=== PATIENT | male | born 1995 | race Caucasian/White ===

== ENCOUNTER → 2016-12-28 | Outpatient (CLI) | payer BC | LOC: GMA 15:17 | PROVIDERS: ATTEND Family Medicine | DX: E34.9 Endocrine disorder, unspecified (principal); N52.9 Male erectile dysfunction, unspecified ==

== ENCOUNTER → 2020-03-18 | Outpatient (CLI) | payer BC ==
--- NOTE | 2020-03-18 16:34 | US ---
EXAM DESCRIPTION: Gall Bladder: ULTRASOUND. CLINICAL HISTORY: NAUSEA COMPARISON: Barium upper GI following this examination. TECHNIQUE: Transabdominal scanning: Medrano-scale and Doppler modes. FINDINGS: Gallbladder: normal size, shape, echogenicity; no intraluminal stones or sludge. No fluid around the gallbladder. No wall thickening. 2.7 mm. Non-tender with transducer pressure. Common bile duct: caliber 4.2 mm within normal limits. Liver: normal echogenicity; contour liver capsule smooth where seen. No fluid around the liver. Intrahepatic biliary ducts normal caliber. Doppler hepatopedal flow portal vein.. 8.2 mm caliber at the radha hepatis. Long axis right lobe 14.2 cm. Pancreas: normal size Normal echogenicity. Duct not seen. Aorta: Proximal caliber 1.6 cm. Right kidney: long axis is 10.3 x 5.7 x 4.4 cm. Normal cortical thickness and echogenicity. No echogenic stones or hydronephrosis.. IMPRESSION: 1. Gallbladder is unremarkable. Normal caliber of the common bile duct. 2. No findings in the liver. Pancreas is negative. No ascites 3. Right kidney normal ultrasound. Normal caliber of the proximal abdominal aorta and IVC. Electronically signed by: Doug Lynne MD 03/18/2020 4:33 PM CDT
--- NOTE | 2020-03-18 16:50 | RAD ---
EXAM DESCRIPTION: UGI: Rad-Fluoroscopy. CLINICAL HISTORY: NAUSEA COMPARISON: Gallbladder ultrasound on the same visit. TECHNIQUE: Fluoroscopy performed by Dr. Lynne The patient swallowed barium pill with water. The patient swallowed gas-producing granules, water, and heavy density barium under fluoroscopic visualization. The images were obtained with the patient standing and horizontal.. Patient drank medium density barium through a straw in the semi-prone position. 40 fluoroscopic cine loop images. 14 single fluoroscopic images. Total fluoroscopy time was 3.4 minutes.. DAP: 15.5 Gy-cm2.. FINDINGS: Patient swallowed the barium pill with no delay in passage from the oral cavity to the stomach. Swallowing mechanism was grossly normal. No mucosal lesions in the distal esophagus. No mass effect. Gastroesophageal junction unremarkable. No hiatal hernia or gastroesophageal reflux. Because of the stomach is unremarkable. No mass effect. Normal function of the gastroduodenal junction. Duodenum contains contrast material. No mucosal lesions or mass effect. Delayed transit of contrast through the jejunum IMPRESSION: 1. Delayed transit of contrast material through the duodenum into jejunum. No mucosal lesions or mass effect or duodenal distention. 2. Stomach is unremarkable. No reflux or hiatal hernia. Normal appearance of the mucosa of the distal esophagus. Electronically signed by: Doug Lynne MD 03/18/2020 4:49 PM CDT
== END ==
LOC: RAD 08:05
PROVIDERS: ATTEND Family Medicine
DX: R11.0 Nausea (principal)

== ENCOUNTER → 2020-03-18 | Outpatient (CLI) | payer BC | LOC: GMAM 11:13 | PROVIDERS: ATTEND Family Medicine | DX: R11.0 Nausea (principal) ==

== ENCOUNTER → 2020-03-22 | Outpatient (CLI) | payer BC ==
--- NOTE | 2020-03-22 14:12 | CT ---
EXAM DESCRIPTION: Abdomen/Pelvis w/wo Contrast: Computed Tomography. CLINICAL HISTORY: NAUSEA. Delayed transit through duodenum on upper GI examination. Nausea and vomiting for an extended period with weight loss. COMPARISON: Fluoroscopic guided upper GI with barium examination and gallbladder ultrasound on March 18. TECHNIQUE: Spiral-axial scans at 5 mm intervals through the abdomen and pelvis before and after 75 mL Optiray 320 nonionic IV contrast. Coronal and sagittal 2.0 mm reconstructions. 2.5 x 2.5 mm Delayed (2 hours) helical-axial scans, liver through the pubic symphysis after oral contrast. Coronal and sagittal 2.0 mm reconstructions. No adverse reactions. Total Exam DLP 2008 mGy - cm. This exam was performed according to our departmental CT dose-optimization program which includes automated exposure control, adjustment of the mA and/or kV according to patient size and/or use of iterative reconstruction technique; to reduce radiation dose to as low as reasonably achievable (ALARA). FINDINGS: Lung bases and pleura: Negative. Liver, Stomach, Spleen, Adrenal Glands: Long axis of the right hepatic lobe is 17.5 cm upper normal limits. Stomach distended with oral contrast on the delayed images. No obstruction of the duodenum. Pancreas, Gallbladder, Ducts: Gallbladder visualized. Pancreas and ducts are negative. Kidneys and Ureters: Unremarkable. Mesentery: Negative. Aorta: Physiologic. Small Bowel: Contains oral contrast. Minimal gas. No distention or air-fluid levels. Terminal Ileum/Cecum: Normal caliber. Retrocecal appendix. No complications. Colon: Oral contrast in the proximal two thirds. Minimal fecal matter in the distal colon. Minimal redundancy of the rectosigmoid. No obstruction or complications. Pelvic Organs: Unremarkable. No free fluid. Spine and Bony Pelvis: Trace levoscoliosis thoracolumbar may be positional versus functional. Abdominal Wall/Back Soft Tissues: Negative. IMPRESSION: No abnormal abdominal pelvic findings with no mass or free fluid. No bowel obstruction. No inflammatory process. Electronically signed by: Doug Lynne MD 03/22/2020 2:10 PM CDT
== END ==
LOC: CT 11:12
PROVIDERS: ATTEND Family Medicine
DX: R11.0 Nausea (principal); E83.52 Hypercalcemia